=== PATIENT | male | born 1985 | race Caucasian/White ===

== ENCOUNTER 2024-04-13 21:17 | Emergency (ER) | payer BC ==
[~2024-04-13] VITALS: Ht 180.3 cm; Wt 127.0 kg
[2024-04-13] MEDS: 0.9%NACL 1000ML 1,000 ML IV ONE (21:49)
[2024-04-13] MEDS: PANTOPRAZOLE 40 MG/VIAL IVP ONE (21:49)
[2024-04-13] MEDS: ONDANSETRON 4MG INJ IVP ONE (21:49)
[2024-04-13 21:59] LABS: BASOPHILS # (AUTO) 0.07 K/uL (0.00-0.20); BASOPHILS % (AUTO) 0.5 % (0.0-5.0); EOSINOPHILS # (AUTO) 0.26 K/uL (0.00-0.70); EOSINOPHILS % (AUTO) 1.9 % (0.0-8.0); HEMATOCRIT 43.8 % (42-54); IMMATURE GRANULOCYTE ABSOLUTE 0.06 K/uL (0-1); LYMPHOCYTES # (AUTO) 4.2 K/uL (1.0-4.8); MEAN CORPUSCULAR HEMOGLOBIN 31.6 pg (27.0-33.0); MEAN CORPUSCULAR HGB CONC 34.2 g/dL (32.0-36.0); MEAN CORPUSCULAR VOLUME 92.4 fL (79-99); MONOCYTES # (AUTO) 1.1 K/uL (0.1-1.0); MONOCYTES % (AUTO) 8.1 % (3.0-13.0); NEUTROPHILS # (AUTO) 7.9 K/uL (1.8-7.7); NEUTROPHILS % (AUTO) 58.1 % (40.0-77.0); PLATELET COUNT (AUTO) 232 K/uL (130-400); RED BLOOD CELL COUNT(AUTO) 4.74 MIL/uL (4.50-6.20); RED CELL DISTRIBUTION WIDTH 14.5 % (11.0-15.5); WHITE BLOOD COUNT (AUTO) 13.6 K/uL (4.8-10.8)
[2024-04-13 22:00] LABS: CREATININE 0.9 mg/dL (0.5-1.3); POTASSIUM 3.7 mmol/L (3.5-5.1)
[2024-04-13 22:05] LABS: INR 0.95 (0.85-1.15); PROTHROMBIN TIME 10.3 SEC (9.6-11.6)
[2024-04-13 22:06] LABS: PARTIAL THROMBOPLASTIN TIME 28.1 SEC (26.3-35.5)
[2024-04-13 22:14] LABS: ALBUMIN 3.3 g/dL (3.5-5.0); BILIRUBIN,TOTAL 0.3 mg/dL (0.2-1.0); TOTAL PROTEIN, SERUM 7.1 g/dL (6.0-8.3)
[2024-04-13] MEDS: MAG/ALUM/SIMETH 30 ML UDCUP PO ONE (23:25)
[2024-04-13] MEDS: MORPHINE 2 MG SYG IVP ONE (23:25)
[2024-04-13] MEDS: DICYCLOMINE HCL 10 MG/5 ML ML PO ONE (23:26)
[2024-04-13] MEDS: LIDOCAINE HCL 2% VISCOUS 15 ML UDCUP PO ONE (23:26)
[2024-04-14] MEDS ORDERED: PANT40TA PO (00:22)
[2024-04-14 00:35] VITALS: BP 128/70; PULSE 90; RESP 20; O2SAT 99
== END 2024-04-14 00:38 | disposition home or self-care (01) ==
LOC: EDH 21:17
DX: K20.91 Esophagitis, unspecified with bleeding (principal); F10.10 Alcohol abuse, uncomplicated; F17.200 Nicotine dependence, unspecified, uncomplicated; Z79.899 Other long term (current) drug therapy; Z98.890 Other specified postprocedural states
CPT/HCPCS: 99284; 96374; 96375; 71045; 82270; 82550; 84484; 80053; 83690; 85025; 85610; 85730; 36415; 93005; J2270; J7030; J2405; J2470